=== PATIENT | female | born 1935 | race Caucasian/White ===

== ENCOUNTER 2018-01-10 09:36 | Emergency (ER) | payer MEDICARE, BC ==
[2018-01-10 11:19] LABS: BASO % 0.4 % (0.0-1.0); EOS # 0.1 10^3/uL (0.0-0.50); EOS % 1.2 % (0.0-3.0); HEMATOCRIT 41.9 % (36.0-47.0); HEMOGLOBIN 13.8 g/dl (12.0-15.5); IMMATURE GRANULOCYTE % 0.2 % (0-3.0); LYMPH # 1.8 10^3/uL (1.5-4.5); LYMPH % 21.9 % (24.0-44.0); MEAN CORPUSCULAR HEMOGLOBIN 32.2 pg (27.0-33.0); MEAN CORPUSCULAR HGB CONC 32.9 g/dl (32.0-36.5); MEAN CORPUSCULAR VOLUME 97.9 fl (80.0-96.0); MONO # 0.5 10^3/uL (0.0-0.8); MONO % 5.8 % (0.0-5.0); NEUTROPHILS # 5.9 10^3/uL (1.8-7.7); NEUTROPHILS % 70.5 % (36.0-66.0); PLATELET COUNT, AUTOMATED 188 10^3/uL (150-450); RED BLOOD COUNT 4.28 10^6/uL (4.00-5.40); RED CELL DISTRIBUTION WIDTH 13.6 % (11.5-14.5); WHITE BLOOD COUNT 8.4 10^3/uL (4.0-10.0)
[2018-01-10] MEDS: ADACEL/BOOSTRIX VACCINE (DIPHTH/PERTUSS/ACELL/TETANUS)0.5ML SYR (90715) IM (11:21)
[2018-01-10 11:30] LABS: INR 1.18; PARTIAL THROMBOPLASTIN TIME 29.6 SECONDS (25.4-37.6); PROTHROMBIN TIME 15.1 SECONDS (12.1-14.4)
[2018-01-10 11:52] LABS: LACTIC ACID SEPSIS PROTOCOL 1.3 MMOL/L (0.4-2.0)
[2018-01-10 11:52] LABS: ERYTHROCYTE SEDIMENTATION RATE 30 mm/hr (0-30)
[2018-01-10 12:17] LABS: ALBUMIN 3.7 GM/DL (3.2-5.2); ALBUMIN/GLOBULIN RATIO 1.23 (1.00-1.93); ALKALINE PHOSPHATASE 63 U/L (45-117); ALT/SGPT 22 U/L (12-78); ANION GAP 7 MEQ/L (8-16); AST/SGOT 16 U/L (7-37); BILIRUBIN,DIRECT 0.2 MG/DL (0.0-0.2); BILIRUBIN,TOTAL 0.6 MG/DL (0.2-1.0); BLOOD UREA NITROGEN 14 MG/DL (7-18); C REACTIVE PROTEIN QUANTITATIV < 0.30 MG/DL (0.00-0.30); CALCIUM LEVEL 9.1 MG/DL (8.8-10.2); CARBON DIOXIDE LEVEL 30 MEQ/L (21-32); CHLORIDE LEVEL 109 MEQ/L (98-107); CREATININE FOR GFR 0.54 MG/DL (0.55-1.30); GLOMERULAR FILTRATION RATE > 60.0 (>32); GLUCOSE, FASTING 110 MG/DL (70-100); POTASSIUM SERUM 4.2 MEQ/L (3.5-5.1); SODIUM LEVEL 146 MEQ/L (136-145); TOTAL PROTEIN 6.7 GM/DL (6.4-8.2)
== END 2018-01-10 13:09 | disposition home or self-care (01) ==
LOC: M ED 09:36
DX: L03.116 Cellulitis of left lower limb (principal); L92.9 Granulomatous disorder of the skin and subcutaneous tissue, unspecified; I48.91 Unspecified atrial fibrillation; I10 Essential (primary) hypertension; E78.5 Hyperlipidemia, unspecified; H35.30 Unspecified macular degeneration; M19.90 Unspecified osteoarthritis, unspecified site; Z95.0 Presence of cardiac pacemaker; Z79.899 Other long term (current) drug therapy; Z79.01 Long term (current) use of anticoagulants
CPT/HCPCS: 90715

== ENCOUNTER 2022-03-04 14:19 | Emergency (ER) | payer MEDICARE, BC ==
[~2022-03-04] VITALS: Ht 162.6 cm; Wt 77.3 kg
[~2022-03-04 14:19] MED LIST: ATEN50TA2 PO; ATOR1TAB19 PO; ELIQ5TAB PO; HYDR12.55 PO; KEFL500C17 PO
[2022-03-04] MEDS ORDERED: SPIR-10 PO (15:42)
[2022-03-04] MEDS ORDERED: BUME1TAB3 PO (15:42)
[2022-03-04] MEDS ORDERED: POTA-151 PO (15:42)
[2022-03-04] MEDS ORDERED: MORPHINE 2 MG/ML 1ML VIAL IV ONE (17:05)
[2022-03-04] MEDS ORDERED: ONDANSETRON 4MG 2ML VIAL IV ONE (17:05)
[2022-03-04 17:13] LABS: BASO % 0.2 % (0.0-1.0); HEMATOCRIT 47.7 % (36.0-47.0); HEMOGLOBIN 15.8 g/dl (12.0-15.5); LYMPH # 1.1 10^3/uL (1.5-5.0); LYMPH % 4.4 % (24.0-44.0); MEAN CORPUSCULAR HEMOGLOBIN 31.2 pg (27.0-33.0); MEAN CORPUSCULAR HGB CONC 33.1 g/dl (32.0-36.5); MEAN CORPUSCULAR VOLUME 94.3 fl (80.0-96.0); MONO # 1.4 10^3/uL (0.0-0.8); MONO % 5.7 % (2.0-8.0); NEUTROPHILS # 22.4 10^3/uL (1.5-8.5); NEUTROPHILS % 88.9 % (36.0-66.0); PLATELET COUNT, AUTOMATED 225 10^3/uL (150-450); RED BLOOD COUNT 5.06 10^6/uL (4.00-5.40); WHITE BLOOD COUNT 25.1 10^3/uL (4.0-10.0)
[2022-03-04] MEDS ORDERED: PIPERACILLIN/TAZOBACTAM SOD 3.375 GM in D5W MINI-BAG PLUS 50 ML IV ONE ×2 (17:35→22:25)
[2022-03-04 17:45] LABS: ALBUMIN 3.5 GM/DL (3.2-5.2); BILIRUBIN,DIRECT 0.2 MG/DL (0.0-0.2); CALCIUM LEVEL 9.9 MG/DL (8.8-10.2); CREATININE FOR GFR 0.97 MG/DL (0.55-1.30); GLOMERULAR FILTRATION RATE 57.8 (>32); POTASSIUM SERUM 4.9 MEQ/L (3.5-5.1); TOTAL PROTEIN 7.4 GM/DL (6.4-8.2)
[2022-03-04] MEDS ORDERED: ISOVUE-370 76% 100ML VIAL As Ordered ONE (18:05)
[2022-03-04 18:52] LABS: RSV AMPLIFICATION NEGATIVE (NEGATIVE)
[2022-03-04] MEDS ORDERED: OCUV1CAP4 PO (19:51)
[2022-03-04] MEDS ORDERED: MAGN400C2 PO (19:51)
[2022-03-04] MEDS ORDERED: MULT-40 PO (19:51)
[2022-03-04] MEDS ORDERED: ATOR1TAB21 PO (19:51)
[2022-03-04] MEDS ORDERED: HOME MED LIST COMPLETE! XX SCH (19:55)
[2022-03-04] MEDS ORDERED: NS 1,000 ML IV ONE (21:30)
[2022-03-04 23:49] VITALS: BP 114/53
== END 2022-03-05 00:01 | disposition short-term general hospital (02) ==
LOC: M ED 14:19
DX: K80.43 Calculus of bile duct with acute cholecystitis with obstruction (principal); I10 Essential (primary) hypertension; I50.9 Heart failure, unspecified; E78.5 Hyperlipidemia, unspecified; Z95.0 Presence of cardiac pacemaker; Z79.899 Other long term (current) drug therapy; Z79.01 Long term (current) use of anticoagulants
CPT/HCPCS: 74177; 76705; 76856; 80048; 80076; 81000; 81015; 83605; 83690; 85025; 87040; 87631; 96365; 96366; 96375; 99284; J2270; J2405; J2543; Q9967

== ENCOUNTER 2023-01-10 10:28 | Emergency (ER) | payer MEDICARE, BC ==
[~2023-01-10] VITALS: Ht 157.5 cm; Wt 77.3 kg
[~2023-01-10 10:28] MED LIST changes: +ATOR1TAB21 PO; +BUME1TAB3 PO; +MAGN400C2 PO; +MULT-40 PO; +OCUV1CAP4 PO; +POTA-151 PO; +SPIR-10 PO
[2023-01-10] MEDS ORDERED: ATEN25TA PO (10:46)
[2023-01-10 12:05] LABS: BASO % 0.3 % (0.0-1.0); EOS % 0.3 % (0.0-3.0); HEMATOCRIT 36.2 % (36.0-47.0); HEMOGLOBIN 11.6 g/dl (12.0-15.5); LYMPH # 1.5 10^3/uL (1.5-5.0); LYMPH % 12.6 % (24.0-44.0); MEAN CORPUSCULAR HEMOGLOBIN 28.9 pg (27.0-33.0); MONO # 0.9 10^3/uL (0.0-0.8); MONO % 7.5 % (2.0-8.0); NEUTROPHILS # 9.3 10^3/uL (1.5-8.5); PLATELET COUNT, AUTOMATED 255 10^3/uL (150-450); RED BLOOD COUNT 4.02 10^6/uL (4.00-5.40); WHITE BLOOD COUNT 11.7 10^3/uL (4.0-10.0)
[2023-01-10 12:36] LABS: BLOOD UREA NITROGEN 13 MG/DL (9-23); CALCIUM LEVEL 7.8 MG/DL (8.3-10.6); CARBON DIOXIDE LEVEL 29 MMOL/L (20-31); CHLORIDE LEVEL 98 MMOL/L (98-107); CREATININE FOR GFR 0.63 MG/DL (0.55-1.30); GLOMERULAR FILTRATION RATE > 60.0 (>32); GLUCOSE, FASTING 111 MG/DL (74-106); POTASSIUM SERUM 5.9 MMOL/L (3.5-5.1); SODIUM LEVEL 133 MMOL/L (136-145)
[2023-01-10] MEDS ORDERED: BENZ200C70 PO (13:26)
[2023-01-10] MEDS ORDERED: DOXY-443 PO (13:26)
[2023-01-10] MEDS ORDERED: MUCI600T31 PO (13:26)
[2023-01-10] MEDS ORDERED: AMOX875T2 PO (13:26)
[2023-01-10 14:25] VITALS: BP 132/61; TEMP 98.3; O2SAT 95
== END 2023-01-10 14:38 | disposition home or self-care (01) ==
LOC: M ED 10:28
DX: J18.9 Pneumonia, unspecified organism (principal); Z79.899 Other long term (current) drug therapy; Z79.01 Long term (current) use of anticoagulants